=== PATIENT | male | born 1950 | race Caucasian/White ===

== ENCOUNTER → 2017-09-06 | Outpatient (CLI) | payer MEDICARE, OTHER | LOC: GMAB 11:31 | PROVIDERS: ATTEND Family Medicine | DX: I10 Essential (primary) hypertension (principal); E29.1 Testicular hypofunction; Z12.5 Encounter for screening for malignant neoplasm of prostate | CPT/HCPCS: 84403; 84443; G0103 ==

== ENCOUNTER → 2018-10-31 | Outpatient (CLI) | payer SELFPAY ==
--- NOTE | 2018-10-31 18:48 | CT ---
EXAM DESCRIPTION: Cardiac Calcium Scoring Screen: Computed Tomography. CLINICAL HISTORY: Coronary Artery Calcium Scoring COMPARISON: None. TECHNIQUE: Spiral-axial scans at 2.5 x 0.4 mm intervals through the coronary arteries without IV contrast. Special algorithm was used, and cardiac gating. No reconstructions. Total Exam DLP: 109.82 mGy-cm. This exam was performed according to our departmental CT dose-optimization program which includes automated exposure control, adjustment of the mA and/or kV according to patient size and/or use of iterative reconstruction technique; to reduce radiation dose to as low as reasonably achievable (ALARA). Some images may have been skipped or repeated due to the heart rhythm or respiration. FINDINGS: The patient has a total Agatston calcium score of 234. This places the patient in the 60th percentile in comparison to a group of patients asymptomatic for coronary artery disease with the same age and gender. This means that 60% of males ages 61-65 have calcium scores lower than the patient. Most of the calcium is detected in the LAD and RCA. The included mediastinum, bilateral blaise, and included renee-hilar lung show no large lymph nodes or dominant soft tissue masses in the mediastinum. Bilateral pleural parenchymal scars in the bases. Acute infiltrative process versus scarring in the right middle lobe, with bronchial wall cuffing.. IMPRESSION: 1. Total coronary artery calcium score of 234. 60th percentile for age and gender. 2. The included mediastinum, lung, and renee-hilar areas show scarring in the bases and scarring versus active process right middle lobe. Correlate with clinical history. Electronically signed by: Doug Calabrese MD 10/31/2018 6:46 PM CDT
== END ==
LOC: CT 11:58
PROVIDERS: ATTEND Family Medicine
DX: I25.10 Atherosclerotic heart disease of native coronary artery without angina pectoris (principal); R91.8 Other nonspecific abnormal finding of lung field

== ENCOUNTER → 2018-12-11 | Outpatient (CLI) | payer MEDICARE | LOC: GMAE 11:40 | PROVIDERS: ATTEND Family Medicine | DX: E29.1 Testicular hypofunction (principal) ==

== ENCOUNTER 2019-08-19 22:27 | Emergency (ER) | payer MEDICARE, OTHER ==
[2019-08-19] MEDS ORDERED: EPINEPHrine HCL AMP 1 MG/ML AMP ONE (22:32)
[2019-08-19] MEDS ORDERED: EPINEPHrine HCL AMP 1 MG/ML AMP SUBCU ONE (22:32)
[2019-08-19] MEDS ORDERED: methylPREDNISolone SODIUM SUC 125 MG/2 ML VIAL ONE (22:33)
[2019-08-19] MEDS ORDERED: diphenhydrAMINE HCL 50 MG/ML VIAL IV ONE (22:33)
[2019-08-19] MEDS ORDERED: methylPREDNISolone SODIUM SUC 125 MG/2 ML VIAL IV ONE (22:33)
[2019-08-19 22:38] VITALS: TEMP 97
[2019-08-20] MEDS ORDERED: FAMOTIDINE 20 MG TAB PO ONE
[2019-08-20] MEDS ORDERED: predniSONE 20 MG TAB PO ONE
[2019-08-20] MEDS ORDERED: MONTELUKAST 10 MG TAB PO ONE
--- NOTE | 2019-08-20 00:03 | ED.PDOC ---
History of Present Illness - General Chief Complaint: Allergic Reaction Stated Complaint: swollen eyes, throat Time Seen by Provider: 08/19/19 22:30 Source: patient Exam Limitations: no limitations - History of Present Illness Initial Comments: The patient is a 68-year-old male presented emergency room secondary to a severe allergic reaction to likely environmental allergens. Symptoms started about an hour and a half prior to arrival. The patient has significant periorbital edema along with uvular edema and hoarseness of voice with mild shortness of breath. He has mild diffuse itching. No hypoxia and no respiratory distress yet. Blood pressure is still within normal limits. Timing/Duration: 1-3 hours Severity: severe Improving Factors: nothing Worsening Factors: nothing Associated Symptoms: denies symptoms Allergies/Adverse Reactions: Allergies NO KNOWN ALLERGY Allergy (Verified 08/03/18 09:38) Home Medications: Ambulatory Orders Aspirin [Aspirin EC Low Dose] 81 mg PO DAILY 08/03/18 Cholecalciferol [Vitamin D3] 2,000 unit PO DAILY 08/03/18 Losartan Potassium 100 mg PO DAILY 08/03/18 Rosuvastatin Calcium 10 mg PO DAILY 08/03/18 Celecoxib [Celebrex] 50 mg PO 08/19/19 Pantoprazole Sodium 40 mg PO 08/19/19 Epinephrine [Epipen 2-Kings] 0.3 mg IJ ONCE #1 ea 08/20/19 predniSONE [Prednisone] 20 mg PO DAILY #3 tab 08/20/19 Review of Systems - Review of Systems Constitutional: States: no symptoms reported EENTM: States: nose congestion, throat swelling Respiratory: States: short of breath, other - Hoarseness Cardiology: States: no symptoms reported Gastrointestinal/Abdominal: States: no symptoms reported Genitourinary: States: no symptoms reported Musculoskeletal: States: no symptoms reported Skin: States: no symptoms reported Neurological: States: no symptoms reported Endocrine: States: no symptoms reported All other Systems: No Change from Baseline Past Medical History (General) - Patient Medical History Hx Seizures: No Hx Stroke: No Hx Dementia: No Hx Asthma: No Hx of COPD: No Hx Cardiac Disorders: No Hx Congestive Heart Failure: No Hx Pacemaker: No Hx Hypertension: Yes Hx Thyroid Disease: No Hx Diabetes: No Hx Gastroesophageal Reflux: No Hx Renal Disease: No Hx Cancer: No Hx of HIV: No Hx Hepatitis C: No Hx MRSA: No Surgical History: other - Vaccination History Hx Tetanus, Diphtheria Vaccination: Yes Hx Influenza Vaccination: No Hx Pneumococcal Vaccination: No - Social History Hx Tobacco Use: No Hx Chewing Tobacco Use: No Hx Alcohol Use: Yes - Occasional Feels Threatened In Home Enviroment: No Feels Threatened In a Relationship: No Hx Physical Abuse: No Hx Emotional Abuse: No - Female History Patient is a Female of Child Bearing Age (10 -59 yrs old): No Family Medical History - Family History Father Living Status: Cause of : CAD Hx Family Hypertension: Yes Hx Cardiac Disease: Yes Hx Family Cancer: Yes - kidney-mom Physical Exam - Physical Exam General Appearance: Alert, Obvious distress, Ill Appearing Eye Exam: bilateral normal Ears, Nose, Throat: hearing grossly normal, nasal congestion, other - Obvious uvular edema and hoarseness Neck: full range of motion, supple Respiratory: lungs clear, normal breath sounds, no respiratory distress, no accessory muscle use, other - The patient has a very frequent clearing cough. Mild rhonchi have started. Cardiovascular/Chest: normal peripheral pulses, regular rate, rhythm, no edema Peripheral Pulses: radial,right: 2+, radial,left: 2+ Gastrointestinal/Abdominal: non tender, soft Rectal Exam: deferred Back Exam: normal inspection, no vertebral tenderness Extremity: normal range of motion, non-tender, normal inspection, no pedal edema, normal capillary refill Neurologic: biometric fingerprinting technician II-XII nml as tested, alert, normal mood/affect, oriented x 3 Skin Exam: normal color, other - See history of present illness Comments: Vital Signs - 24 hr 08/19/19 08/19/19 08/19/19 22:32 22:46 22:53 Temperature 97.0 F L 97.0 F L Pulse Rate [ 80 79 Pulse ox] Respiratory 20 20 20 Rate Blood Pressure 125/87 111/81 [Left Arm] O2 Sat by Pulse 97 95 Oximetry 08/19/19 23:36 Temperature 97.0 F L Pulse Rate [ 74 Pulse ox] Respiratory 20 Rate Blood Pressure 111/84 [Left Arm] O2 Sat by Pulse 92 L Oximetry Progress - Progress Progress: 08/20/19 00:04 The patient is a 68-year-old male presenting with the start of anaph ylaxis, including uvular edema and obvious laryngeal edema based on the hoarseness. He is starting to have some airway involvement upon arrival. The patient received a dose of epinephrine along with IV Benadryl and IV Solu- Medrol. These were followed up with oral doses of prednisone, Pepcid and Singulair. The patient was monitored almost 2 hours with a significant improvement in symptoms. He will be placed on prednisone for the next 3 days and needs to take either Zyrtec or Bri daily for the next couple of weeks. he will also be written for EpiPen's to keep with him in case of a severe reaction in the future. ER warnings are given for any significant worsening. Vital signs are stable at this time. konrad hobbs [id number] 08/20/19 00:06 Critical care time spent for anaphylaxis is 40 minutes. Departure - Departure Clinical Impression: Anaphylaxis Qualifiers: Encounter type: initial encounter Qualified Code(s): T78.2XXA - Anaphylactic shock, unspecified, initial encounter Disposition: Discharge to Home or Self Care Condition: Fair Departure Forms: ED Discharge - Pt. Copy, Patient Portal Self Enrollment Instructions: Anaphylaxis (DC) Diet: regular diet Activity: increase activity as tolerated Referrals: IRLANDA SUGGS MD [Primary Care Provider] - 1-2 Weeks Prescriptions: Epinephrine [Epipen 2-Kings] 0.3 mg IJ ONCE #1 ea predniSONE [Prednisone] 20 mg PO DAILY #3 tab Home Medications: Ambulatory Orders Aspirin [Aspirin EC Low Dose] 81 mg PO DAILY 08/03/18 Cholecalciferol [Vitamin D3] 2,000 unit PO DAILY 08/03/18 Losartan Potassium 100 mg PO DAILY 08/03/18 Rosuvastatin Calcium 10 mg PO DAILY 08/03/18 Celecoxib [Celebrex] 50 mg PO 08/19/19 Pantoprazole Sodium 40 mg PO 08/19/19 Epinephrine [Epipen 2-Kings] 0.3 mg IJ ONCE #1 ea 08/20/19 predniSONE [Prednisone] 20 mg PO DAILY #3 tab 08/20/19 Additional Instructions: The patient is a 68-year-old male presenting with the start of anaphylaxis, including uvular edema and obvious laryngeal edema based on the hoarseness. He is starting to have some airway involvement upon arrival. The patient received a dose of epinephrine along with IV Benadryl and IV Solu- Medrol. These were followed up with oral doses of prednisone, Pepcid and Singulair. The patient was monitored almost 2 hours with a significant improvement in symptoms. He will be placed on prednisone for the next 3 days and needs to take either Zyrtec or Bri daily for the next couple of weeks. he will also be written for EpiPen's to keep with him in case of a severe reaction in the future. ER warnings are given for any significant worsening. Vital signs are stable at this time.
[2019-08-20] MEDS ORDERED: predniSONE 20 MG TAB ONE (00:12)
[2019-08-20 00:16] VITALS: BP 117/64; O2SAT 94
== END 2019-08-20 00:16 | disposition home or self-care (01) ==
LOC: ER 22:27
DX: T78.2XXA Anaphylactic shock, unspecified, initial encounter (principal); I10 Essential (primary) hypertension; Y92.9 Unspecified place or not applicable
CPT/HCPCS: J1200; J2930; J7512

== ENCOUNTER → 2019-11-20 | Outpatient (CLI) | payer MEDICARE, OTHER | LOC: GMAE 11:28 | PROVIDERS: ATTEND Family Medicine | DX: Z12.5 Encounter for screening for malignant neoplasm of prostate (principal); I10 Essential (primary) hypertension; E29.1 Testicular hypofunction; E11.9 Type 2 diabetes mellitus without complications | CPT/HCPCS: 84403; 84443; G0103 ==

== ENCOUNTER → 2019-12-30 | Outpatient (CLI) | payer MEDICARE, OTHER ==
--- NOTE | 2019-12-30 12:18 | RAD ---
Study: Frontal and Lateral Radiographs of the Chest. Indication: coronavirus infection Comparison: February 18, 2009 Impression: Heart size normal. Subtle hazy opacities at the lung bases and right midlung which could reflect pneumonia or atelectasis. COVID-19 could give this appearance. No pleural effusion or pneumothorax. No acute osseous abnormality. Electronically signed by: Hany Balbuena MD 12/30/2019 12:17 PM CDT
== END ==
LOC: LAB.O 09:11
PROVIDERS: ATTEND Family Medicine
DX: B34.2 Coronavirus infection, unspecified (principal); R91.8 Other nonspecific abnormal finding of lung field

== ENCOUNTER 2020-01-03 13:10 | Emergency (ER) | payer MEDICARE, OTHER ==
[2020-01-03] MEDS ORDERED: DEXAMETHASONE INJ 10 MG/ML VIAL IV ONE (13:39)
--- NOTE | 2020-01-03 13:39 | ED.PDOC ---
History of Present Illness - General Chief Complaint: Respiratory Problem Stated Complaint: Shortness of breath Time Seen by Provider: 01/03/20 13:30 Source: patient, RN notes reviewed, Vital Signs reviewed Exam Limitations: no limitations - History of Present Illness Initial Comments: This is a 69-year-old male with history of asthma who recently tested positive for COVID-19 presenting to the emergency department for cough and increasing shortness of breath. He has been using his albuterol inhaler at home sporadically, maybe once a day or less. His symptoms began over a week ago. He reports intermittent fever. He had an episode of vomiting 2 days ago, denies any current nausea or diarrhea. Allergies/Adverse Reactions: Allergies NO KNOWN ALLERGY Allergy (Verified 08/03/18 09:38) Home Medications: Ambulatory Orders Aspirin [Aspirin EC Low Dose] 81 mg PO DAILY 08/03/18 Cholecalciferol [Vitamin D3] 2,000 unit PO DAILY 08/03/18 Losartan Potassium 100 mg PO DAILY 08/03/18 Rosuvastatin Calcium 10 mg PO DAILY 08/03/18 Celecoxib [Celebrex] 50 mg PO 08/19/19 Pantoprazole Sodium 40 mg PO 08/19/19 Epinephrine [Epipen 2-Kings] 0.3 mg IJ ONCE #1 ea 08/20/19 predniSONE [Prednisone] 20 mg PO DAILY #3 tab 08/20/19 Albuterol Inhaler [Ventolin Hfa Inhaler] 2 - 4 puff INH Q4H PRN #1 inh 01/03/20 Ondansetron Odt [Zofran ODT] 4 - 8 mg PO Q6H PRN #15 tab 01/03/20 Potassium Chloride Tab [K-Dur] 20 meq PO DAILY #10 tab 01/03/20 guaiFENesin W/CODEINE LIQ [Robitussin AC] 10 ml PO Q6H PRN #120 ml 01/03/20 Review of Systems - Review of Systems Constitutional: States: chills, fever, malaise, weakness EENTM: States: nose congestion, throat pain. Denies: ear pain, nose pain, mouth pain Respiratory: States: cough, short of breath. Denies: wheezing Cardiology: Denies: chest pain, edema, palpitations Gastrointestinal/Abdominal: States: nausea, vomiting. Denies: abdominal pain, diarrhea Musculoskeletal: Denies: joint pain, neck pain Skin: Denies: dryness, lesions Neurological: States: headache. Denies: paresthesia, weakness Endocrine: States: no symptoms reported Hematologic/Lymphatic: States: no symptoms reported Past Medical History (General) - Patient Medical History Hx Seizures: No Hx Stroke: No Hx Dementia: No Hx Asthma: No Hx of COPD: No Hx Cardiac Disorders: No Hx Congestive Heart Failure: No Hx Pacemaker: No Hx Hypertension: Yes Hx Thyroid Disease: No Hx Diabetes: No Hx Gastroesophageal Reflux: No Hx Renal Disease: No Hx Cancer: No Hx of HIV: No Hx Hepatitis C: No Hx MRSA: No - Vaccination History Hx Tetanus, Diphtheria Vaccination: Yes Hx Influenza Vaccination: No Hx Pneumococcal Vaccination: No - Social History Hx Tobacco Use: No Hx Chewing Tobacco Use: No Hx Alcohol Use: Yes - Occasional Hx Physical Abuse: No Hx Emotional Abuse: No Family Medical History - Family History Father Living Status: Cause of : CAD Hx Family Hypertension: Yes Hx Cardiac Disease: Yes Hx Family Cancer: Yes - kidney-mom Physical Exam - Physical Exam General Appearance: Alert, Comfortable Ears, Nose, Throat: hearing grossly normal, normal ENT inspection, normal pharynx Neck: non-tender, full range of motion Respiratory: chest non-tender, lungs clear, normal breath sounds, no respiratory distress, no accessory muscle use, other - Frequent cough Cardiovascular/Chest: normal peripheral pulses, regular rate, rhythm, no edema, no gallop, no JVD, no murmur Gastrointestinal/Abdominal: non tender, soft Back Exam: normal inspection, no vertebral tenderness Extremity: normal range of motion, non-tender, normal inspection, no pedal edema Neurologic: no motor/sensory deficits, alert, normal mood/affect, oriented x 3 Skin Exam: normal color, warm/dry Progress - Progress Progress: 01/03/20 15:24 Rechecked. Ambulating sat 92 to 93% on room air. No respiratory distress. Discussed lab findings, x-ray findings and plan for discharge. Recommended follow-up with PCP by phone in 2 to 3 days. Strict warnings given to return to the emergency room for increasing shortness of breath, intractable vomiting, changes in mental status, or any other concerns. DDx: COVID-19, pneumonia, respiratory failure, asthma exacerbation MDM: 69-year-old male with history of asthma presenting for cough and shortness of breath related to known COVID-19 infection. His O2 sats are in the low normal range, 92 to 93% on room air, no change with ambulation. Chest x-ray shows some subtle groundglass opacities, but no pneumonia. He has some mild hypokalemia, but otherwise no significant lab abnormalities. I will replete this at home. I will also send him with prescriptions for antitussive, antiemetics, refill on albuterol. I recommended he continue his current treatment with prednisone and to finish his antibiotics as prescribed. I do not feel he warrants admission at this time. I gave clear instructions to return the emergency room for any worsening shortness of breath, vomiting, changes in mental status, or any other concerns. Yan Guzman DO [id number] - Results/Orders Results/Orders: EKG reviewed personally by me at 1324. Normal sinus rhythm, rate of 78, normal axis, normal intervals, no ST segment elevations or depressions. EXAM DESCRIPTION: Chest,1 View 01/03/2020 2:07 PM CDT CLINICAL HISTORY: 69 years, Male, Known COVID 19, worsening SOB COMPARISON: 12/30/2019. FINDINGS: Single view of the chest was obtained portable. Prior films were compared. In comparison with prior study there has available the presence of a very mild subpleural/lateral ground glass opacity within the lateral mid/upper right lung zone, minimally along both lower lung zones perhaps ingesting the possibility of viral/Covid 19 pneumonia. The cardiomediastinal silhouette demonstrate to be unremarkable. The heart is not enlarged. The thoracic aorta is unremarkable. There are no pleural effusions. Plate fixation device is noted within the lower cervical spine. The rest of the soft tissue and bony structures demonstrate to be unremarkable. IMPRESSION: SUBTLE, SLIGHTLY MORE PRONOUNCED AREAS OF GROUNDGLASS OPACITIES RIGHT AND LEFT LUNG, FINDINGS CORRESPOND TO MILD MANIFESTATIONS OF COVID 19 PNEUMONIA. Electronically signed by: Jose Saldivar MD 01/03/2020 2:09 PM CDT 01/03/20 13:39 IV Care:Saline Lock per Protoc STAT Isolation:Airborne ONCE Telemetry STAT 01/03/20 13:45 EKG STAT Pulse Ox, Continuous Monitoring STAT 01/04/20 13:45 Pulse Ox, Continuous Monitoring STAT 01/05/20 13:45 Pulse Ox, Continuous Monitoring STAT Laboratory Results - last 24 hr 10/01/03/20 01/03/20 13:50 13:50 13:50 WBC 14.2 H RBC 4.74 Hgb 15.3 Hct 44.4 MCV 93.7 MCH 32.4 H MCHC 34.6 RDW 14.0 Plt Count 338 MPV 8.3 Absolute Neuts (auto) 11.10 H Absolute Lymphs (auto) 1.90 Absolute Monos (auto) 1.10 H Absolute Eos (auto) 0.00 Absolute Basos (auto) 0.10 Neutrophils % 78.1 H Lymphocytes % 13.6 L Monocytes % 7.6 Eosinophils % 0.1 L Basophils % 0.6 PTT (SP) 25.0 D-Dimer, Quantitative 285.0 Sodium 133 L Potassium 3.0 L Chloride 97 L Carbon Dioxide 25 Anion Gap 14.0 BUN 27 H Creatinine 1.02 BUN/Creatinine Ratio 26.5 H Random Glucose 125 H Serum Osmolality 273.0 L Calcium 8.4 Magnesium 2.2 Total Bilirubin 0.7 AST 20 ALT 15 Alkaline Phosphatase 32 L LD Total 139 Creatine Kinase 86 Troponin I C-Reactive Protein 4.5 H B-Natriuretic Peptide 81.0 Serum Total Protein 6.6 Albumin 3.4 Globulin 3.2 Albumin/Globulin Ratio 1.1 01/03/20 13:50 WBC RBC Hgb Hct MCV MCH MCHC RDW Plt Count MPV Absolute Neuts (auto) Absolute Lymphs (auto) Absolute Monos (auto) Absolute Eos (auto) Absolute Basos (auto) Neutrophils % Lymphocytes % Monocytes % Eosinophils % Basophils % PTT (SP) D-Dimer, Quantitative Sodium Potassium Chloride Carbon Dioxide Anion Gap BUN Creatinine BUN/Creatinine Ratio Random Glucose Serum Osmolality Calcium Magnesium Total Bilirubin AST ALT Alkaline Phosphatase LD Total Creatine Kinase Troponin I < 0.02 C-Reactive Protein B-Natriuretic Peptide Serum Total Protein Albumin Globulin Albumin/Globulin Ratio Departure - Departure Clinical Impression: Bronchitis due to 2019 novel coronavirus, Hypokalemia Disposition: Discharge to Home or Self Care Condition: Fair Departure Forms: ED Discharge - Pt. Copy, Patient Portal Self Enrollment Instructions: Coronavirus Disease 2019 (COVID-19) Diet: resume usual diet Activity: increase activity as tolerated Referrals: IRLANDA SUGGS MD [Primary Care Provider] - 1-5 Days Prescriptions: Potassium Chloride Tab [K-Dur] 20 meq PO DAILY #10 tab guaiFENesin W/CODEINE LIQ [Robitussin AC] 10 ml PO Q6H PRN #120 ml PRN Reason: Cough Albuterol Inhaler [Ventolin Hfa Inhaler] 2 - 4 puff INH Q4H PRN #1 inh PRN Reason: Wheezing Ondansetron Odt [Zofran ODT] 4 - 8 mg PO Q6H PRN #15 tab PRN Reason: Nausea Home Medications: Ambulatory Orders Aspirin [Aspirin EC Low Dose] 81 mg PO DAILY 08/03/18 Cholecalciferol [Vitamin D3] 2,000 unit PO DAILY 08/03/18 Losartan Potassium 100 mg PO DAILY 08/03/18 Rosuvastatin Calcium 10 mg PO DAILY 08/03/18 Celecoxib [Celebrex] 50 mg PO 08/19/19 Pantoprazole Sodium 40 mg PO 08/19/19 Epinephrine [Epipen 2-Kings] 0.3 mg IJ ONCE #1 ea 08/20/19 predniSONE [Prednisone] 20 mg PO DAILY #3 tab 08/20/19 Albuterol Inhaler [Ventolin Hfa Inhaler] 2 - 4 puff INH Q4H PRN #1 inh 01/03/20 Ondansetron Odt [Zofran ODT] 4 - 8 mg PO Q6H PRN #15 tab 01/03/20 Potassium Chloride Tab [K-Dur] 20 meq PO DAILY #10 tab 01/03/20 guaiFENesin W/CODEINE LIQ [Robitussin AC] 10 ml PO Q6H PRN #120 ml 01/03/20 Comments: Return to the emergency room immediately for worsening shortness of breath, changes in mental status, vomiting, or any other concerns. Check O2 saturation 2-3 times daily or if symptoms are worsening. Return to the emergency room for O2 sats of less than 90%.
--- NOTE | 2020-01-03 14:11 | RAD ---
EXAM DESCRIPTION: Chest,1 View 01/03/2020 2:07 PM CDT CLINICAL HISTORY: 69 years, Male, Known COVID 19, worsening SOB COMPARISON: 12/30/2019. FINDINGS: Single view of the chest was obtained portable. Prior films were compared. In comparison with prior study there has available the presence of a very mild subpleural/lateral ground glass opacity within the lateral mid/upper right lung zone, minimally along both lower lung zones perhaps ingesting the possibility of viral/Covid 19 pneumonia. The cardiomediastinal silhouette demonstrate to be unremarkable. The heart is not enlarged. The thoracic aorta is unremarkable. There are no pleural effusions. Plate fixation device is noted within the lower cervical spine. The rest of the soft tissue and bony structures demonstrate to be unremarkable. IMPRESSION: SUBTLE, SLIGHTLY MORE PRONOUNCED AREAS OF GROUNDGLASS OPACITIES RIGHT AND LEFT LUNG, FINDINGS CORRESPOND TO MILD MANIFESTATIONS OF COVID 19 PNEUMONIA. Electronically signed by: Jose Saldivar MD 01/03/2020 2:09 PM CDT
[2020-01-03 14:18] VITALS: TEMP 98.6
[2020-01-03] MEDS ORDERED: POTASSIUM CHLORIDE 20 MEQ TAB PO ONE (15:23)
[2020-01-03 16:29] VITALS: BP 112/89; O2SAT 94
== END 2020-01-03 15:35 | disposition home or self-care (01) ==
LOC: ER 13:10
DX: U07.1 COVID-19 (principal); J40 Bronchitis, not specified as acute or chronic; E87.6 Hypokalemia; R06.02 Shortness of breath; I10 Essential (primary) hypertension; Z79.82 Long term (current) use of aspirin; Z79.899 Other long term (current) drug therapy
CPT/HCPCS: 36415; 71045; 80053; 82550; 83615; 83735; 83880; 84484; 85025; 85379; 85730; 86140; 93005; J1100

== ENCOUNTER → 2020-01-13 | Outpatient (CLI) | payer MEDICARE, OTHER | LOC: LAB.O 16:25 | PROVIDERS: ATTEND Family Medicine | DX: U07.1 COVID-19 (principal); R71.8 Other abnormality of red blood cells; R06.00 Dyspnea, unspecified; R09.02 Hypoxemia ==

== ENCOUNTER → 2020-01-14 | Outpatient (CLI) | payer MEDICARE, OTHER ==
--- NOTE | 2020-01-16 10:46 | CT ---
EXAM DESCRIPTION: Chest w/Contrast : Computed Tomography. CLINICAL HISTORY: 69 years Male COVID 19 COMPARISON: Chest x-ray January 02. CT cardiac calcium score scan October 2018 TECHNIQUE: Spiral-axial scans at 5 mm intervals through the lungs and thorax with IV contrast. 2.5 x 5 mm lung algorithm axial reconstructions. Coronal and sagittal 2.0 Mm reconstructions. No adverse reactions. Total Exam DLP: 790 mGy-cm. This exam was performed according to our departmental dose-optimization program which includes automated exposure control, adjustment of the mA and/or kV according to patient size and/or use of iterative reconstruction technique; to reduce radiation dose to as low as reasonably achievable (ALARA). Nodule measurements under 10 mm are given as mean value of 3 axes diameters. FINDINGS: Lungs and large airways: Bilateral subpleural groundglass infiltrates predominantly lower lobes, by basilar segments, lingula, right middle lobe. Diffuse infiltrates in the right upper lobe with minimal involvement of the apices. Bilateral perihilar peribronchial wall cuffing. This is consistent with history of COVID 19 positive test and clinical presentation. Pleural spaces: No effusion or calcification or other acute process. Mediastinum and Ijeoma: Small lymph nodes in the upper mediastinum . This region has not been scanned on prior cardiac CT studies. Great vessels and Heart: Minimal coronary artery calcification. Soft tissues of neck base, axillae, and chest wall: Axillary lymph nodes appear physiologic. Upper abdomen: No free air or free fluid. Gallbladder visualized. No focal lesions in the included abdominal organs. Minimal atherosclerotic calcifications. Osseous structures: Spondylosis mid and lower thoracic spine. Glenohumeral arthrosis more right than left and sternoclavicular arthrosis. IMPRESSION: Commonly reported imaging features of COVID-19 pneumonia are present. Other processes such as influenza pneumonia and organizing pneumonia, as can be seen with drug toxicity and connective tissue disease, can cause a similar imaging pattern. Reference: https://pubs.[facility]na.org/doi/full/10.1148/ryct.[email or web address]. Electronically signed by: Doug Calabrese MD 01/16/2020 10:44 AM PORTAL ADMINISTRATOR
== END ==
LOC: CT 09:06
PROVIDERS: ATTEND Family Medicine
DX: U07.1 COVID-19 (principal)

== ENCOUNTER → 2020-02-27 | Outpatient (CLI) | payer MEDICARE, OTHER ==
--- NOTE | 2020-02-28 10:51 | MRI ---
Study: MRI of the Right Hip. Indication: PAIN IN RIGHT HIP Technique: Multiplanar, multi sequence MRI of the right hip was obtained without intravenous contrast. Comparison: None. Findings: Grade 4 chondral thinning anterior superior aspects of the right hip joint with grade 3 chondral loss of the remainder of the joint. Mild subchondral marrow change anterior superior acetabulum. Tiny joint line osteophytes. Degeneration throughout the anterior superior and superior aspects of the right labrum which is thickened. Irregular free edge and undersurface tearing noted at these sites. Prominent cam deformity. Tiny right hip effusion. No acute fracture or osteonecrosis. Tendinosis and attenuation bilateral gluteus minimus/medius tendon insertions with mild bilateral greater trochanter bursal edema. Tendinosis bilateral hamstring tendon origins. Moderate pubic symphysis osteoarthritis. Pronounced lower lumbar disc disease. Several indeterminate right inguinal lymph nodes measuring up to 14 mm x 12 mm. Impression: Moderate right hip osteoarthritis with associated labral degeneration. No acute fracture or osteonecrosis. Tiny joint effusion present. Indeterminate right inguinal lymph nodes. Clinical follow-up to resolution recommended. Alternatively, follow-up CT pelvis could be performed in 6 months. Electronically signed by: Hany Balbuena MD 02/28/2020 10:49 AM [facility]
== END ==
LOC: MRI 08:00
PROVIDERS: ATTEND Family Medicine
DX: M16.11 Unilateral primary osteoarthritis, right hip (principal); M25.451 Effusion, right hip